=== PATIENT | female | born 1975 ===

== ENCOUNTER → 2024-12-26 07:39 | Outpatient (REF) | payer BC, SELFPAY | LOC: WDC 07:39 | PROVIDERS: ATTENDING PHYSICIAN Nurse Practitioner Family | DX: R91.1 Solitary pulmonary nodule (principal); Z12.39 Encounter for other screening for malignant neoplasm of breast; Z12.31 Encounter for screening mammogram for malignant neoplasm of breast | CPT/HCPCS: 71260; 77063; 77067; Q9967 ==

== ENCOUNTER 2025-02-13 06:23 | Day surgery (SDC) | payer BC, SELFPAY | END 2025-02-13 09:06 | disposition home or self-care (01) | LOC: GI 06:23 | PROVIDERS: ATTENDING PHYSICIAN Internal Medicine | DX: Z12.11 Encounter for screening for malignant neoplasm of colon (principal); K64.9 Unspecified hemorrhoids; K63.5 Polyp of colon | CPT/HCPCS: 45380; 88305 ==